=== PATIENT | male | born 1955 | race Caucasian/White ===

== ENCOUNTER 2019-06-05 11:45 | Inpatient (IN) | payer OTHER ==
[2019-06-05] MEDS ORDERED: VANCOMYCIN 2,000 MG in SODIUM CHLORIDE 0.9% 500 ML 500 ML IVPB STA (12:00)
[2019-06-05] MEDS ORDERED: PIPERACILLIN-TAZOBACTAM 3.375 GM in SODIUM CHLORIDE 0.9% 100 ML IVPB STA (12:00)
[2019-06-05] MEDS ORDERED: HYDROcodone/APAP 5-325MG 1 EACH TAB PO STA (12:01)
[2019-06-05] MEDS ORDERED: KETOROLAC 30 MG/ML 1 ML VIAL IVP STA (12:01)
[2019-06-05] MEDS ORDERED: SODIUM CHLORIDE 0.9% 1,000 ML IV ONE (12:01)
--- NOTE | 2019-06-05 12:10 | ED ---
General Adult HPI - General Chief complaint: Skin/Abscess/Foreign Body Stated complaint: Spider bite Time Seen by Provider: 06/05/19 11:53 Source: patient Mode of arrival: ambulatory Limitations: no limitations - History of Present Illness Initial comments: Patient is a 63-year-old male presents with chief complaint of right hand pain for 2 days. The patient says he stuck his hand in a newspaper recycling bin and thinks a bit by a spider. Since that time he has had increased swelling of the hand, mainly at the middle finger on the palmar. He says his pain is 9 out of 10 but somewhat alleviated with Advil. The patient denied any fever, chills, n ausea or vomiting, chest pain or shortness of breath. He says he does not take any medications at home, does not have any previous medical history. - Related Data Home Medications Medication Instructions Recorded Confirmed Ibuprofen [Motrin] 800 mg PO Q6H PRN 06/05/19 06/05/19 Allergies Allergy/AdvReac Type Severity Reaction Status Date / Time No Known Allergies Allergy Verified 06/05/19 12:22 Review of Systems ROS Statement: Those systems with pertinent positive or pertinent negative responses have been documented in the HPI. ROS Other: All systems not noted in ROS Statement are negative. Musculoskeletal: Reports: joint swelling, arthralgia Past Medical History Past Medical History: No Reported History History of Any Multi-Drug Resistant Organisms: None Reported Past Surgical History: No Surgical Hx Reported Past Psychological History: No Psychological Hx Reported Smoking Status: Current every day smoker Past Alcohol Use History: None Reported Past Drug Use History: None Reported General Exam Limitations: no limitations General appearance: alert, in no apparent distress, anxious Head exam: Present: atraumatic, normocephalic Eye exam: Present: normal appearance ENT exam: Present: normal exam Neck exam: Present: normal inspection Respiratory exam: Present: normal lung sounds bilaterally. Absent: respiratory distress, wheezes Cardiovascular Exam: Present: regular rate, normal rhythm GI/Abdominal exam: Present: soft. Absent: distended, tenderness Rectal exam: Present: deferred Extremities exam: Present: joint swelling, other (patient has signs of cellulitis and abscess of the right hand. digits 2, 3, and 4 are red and swoll en, tender to palpation. there is a puncture wound on the middle finger. ) Back exam: Present: normal inspection Neurological exam: Present: alert, oriented X3 Psychiatric exam: Present: normal affect, normal mood Skin exam: Present: warm, dry, intact, other (as above ) Course Vital Signs 06/05/19 06/05/19 11:47 13:46 Temperature 97.5 F L Pulse Rate 95 98 Respiratory 28 H 18 Rate Blood Pressure 158/114 156/100 O2 Sat by Pulse 98 98 Oximetry Medical Decision Making - Medical Decision Making Patient presents with chief complaint hand pain and swelling. On initial evaluation, vitals are stable, patient is in no acute distress though he does appear anxious. Physical exam of the hand is concerning for cellulitis versus abscess. Patient started on vancomycin and Zosyn, blood work including lactic acid and blood cultures were drawn. Patient will be sent for computed tomography scan of the hand. Case discussed with orthopedics who agreed with current management, antibiotics, and admission. They're recommending a K pad to be placed on the hand. 1:53 PM Lab evaluation of this patient shows a leukocytosis of 13.3 with a left shift. Labs are otherwise showing a C-reactive protein of 72.6. Computed tomography scan of the hand does not show any drainable fluid collection. At this time, patient will be admitted for IV antibiotics. He is agreeable with the care plan. Patient admitted to Dr. Rodríguez with infectious disease on consult. - Lab Data Result diagrams: 06/05/19 12:15 06/05/19 12:15 Lab Results 06/05/19 06/05/19 06/05/19 Range/Units 12:15 12:15 12:15 WBC 13.3 H (3.8-10.6) k/uL RBC 5.96 H (4.30-5.90) m/uL Hgb 16.6 (13.0-17.5) gm/dL Hct 50.1 (39.0-53.0) % MCV 84.1 (80.0-100.0) fL MCH 27.9 (25.0-35.0) pg MCHC 33.1 (31.0-37.0) g/dL RDW 13.5 (11.5-15.5) % Plt Count 271 (150-450) k/uL Neutrophils % 76 % Lymphocytes % 15 % Monocytes % 6 % Eosinophils % 1 % Basophils % 0 % Neutrophils # 10.2 H (1.3-7.7) k/uL Lymphocytes # 2.0 (1.0-4.8) k/uL Monocytes # 0.8 (0-1.0) k/uL Eosinophils # 0.2 (0-0.7) k/uL Basophils # 0.0 (0-0.2) k/uL ESR 8 (0-15) mm/hr Sodium 141 (137-145) mmol/L Potassium 4.1 (3.5-5.1) mmol/L Chloride 111 H (98-107) mmol/L Carbon Dioxide 18 L (22-30) mmol/L Anion Gap 12 mmol/L BUN 16 (9-20) mg/dL Creatinine 0.99 (0.66-1.25) mg/dL Est GFR (CKD-EPI)AfAm >90 (>60 ml/min/1.73 sqM) Est GFR (CKD-EPI)NonAf 80 (>60 ml/min/1.73 sqM) Glucose 122 H (74-99) mg/dL Plasma Lactic Acid Pavel 1.9 (0.7-2.0) mmol/L Calcium 10.2 (8.4-10.2) mg/dL C-Reactive Protein 72.6 H (<10.0) mg/L Disposition Clinical Impression: Cellulitis of right hand Disposition: ADMITTED IP TO THIS HOSP Condition: Good Is patient prescribed a controlled substance at d/c from ED?: No Decision to Admit Reason: Admit from EC - Out of Hospital Transfer - Req. Specs Out of Hospital Transfer - Requested Specifics: Other Non-Acute
[2019-06-05 12:28] LABS: Basophils % (A) 0 %; Eosinophils # (A) 0.2 k/uL (0-0.7); Eosinophils % (A) 1 %; HCT 50.1 % (39.0-53.0); HGB 16.6 gm/dL (13.0-17.5); Lymphocytes % (A) 15 %; MCH 27.9 pg (25.0-35.0); MCHC 33.1 g/dL (31.0-37.0); MCV 84.1 fL (80.0-100.0); Mean Platelet Volume 6.5; Monocytes # (A) 0.8 k/uL (0-1.0); Monocytes % (A) 6 %; Neutrophils # (A) 10.2 k/uL (1.3-7.7); Neutrophils % (A) 76 %; Platelet Count 271 k/uL (150-450); RBC 5.96 m/uL (4.30-5.90); RDW 13.5 % (11.5-15.5); WBC 13.3 k/uL (3.8-10.6)
[2019-06-05 12:43] LABS: African American GFR (CKD) >90 (>60 ml/min/1.73 sqM); Anion Gap 12 mmol/L; Blood Urea Nitrogen 16 mg/dL (9-20); C Reactive Protein 72.6 mg/L (<10.0); Calcium 10.2 mg/dL (8.4-10.2); Carbon Dioxide 18 mmol/L (22-30); Chloride 111 mmol/L (98-107); Glucose 122 mg/dL (74-99); Potassium 4.1 mmol/L (3.5-5.1); Sodium 141 mmol/L (137-145)
[2019-06-05] MEDS ORDERED: NALOXONE 0.4 MG/ML 1 ML VIAL IV PRN (13:00)
[2019-06-05 13:14] LABS: Erythrocyte Sedimentation Rate 8 mm/hr (0-15)
--- NOTE | 2019-06-05 13:49 | CT ---
EXAMINATION TYPE: CT hand RT w con DATE OF EXAM: 06/05/2019 COMPARISON: None. HISTORY: Red swollen hand CT DLP: 202 mGycm Automated exposure control for dose reduction was used. CONTRAST: Performed with IV Contrast, patient injected with 100 mL of Isovue 300. FINDINGS: The fingers are flexed in all projections. Soft tissues appear unremarkable. No abnormal fluid collections are seen. No osseous destructive lesi on is seen. IMPRESSION: 1. NO ACUTE OSSEOUS LESION. 2. NO DRAINABLE FLUID COLLECTION.
[2019-06-05] MEDS ORDERED: VANCOMYCIN IV PER PHARMACY 1 EACH MISC MISCELLANE PRN (14:36)
[2019-06-05] MEDS: LACTATED RINGERS 1,000 ML IV SCH (17:16)
[2019-06-05] MEDS: HYDROcodone/APAP 5-325MG 1 EACH TAB PO PRN (20:58)
--- NOTE | 2019-06-05 23:48 | P.CONS ---
History of Present Illness - Reason for Consult Consult date: 06/05/19 Tenosynovitis right hand Requesting physician: Oliver Rodríguez - Chief Complaint Right hand pain swelling few days - History of Present Illness Patient is a 63-year-old male presenting to the ER at [facility] chief complaints of right hip pain swelling and redness the patient has been going on for a few days patient mentioned that he put his and in a newspaper recycling bin and subsequently noticed to have pain on the dorsum aspect of his right hand the subsequently has increased in intensity over the next few days that prompted him to come to the ER and decided to be throbbing 5- 6 out of 10 and worse with touching his hand especially dorsal aspect of the middle finger with associated swelling and redness currently with open wound or any drainage and denies having any fever or chills the symptom the patient was evaluated by the ER physician patient did not have any fever on presentation to the hospital he did have CT of the right hand which did not show any drainable abscess patient will be started on vancomycin and Zosyn and infectious disease was consulted for further recommendation regarding antibiotic therapy Review of Systems CONSTITUTIONAL: Positive for weakness. Denies high-grade Fever EYES: No complaint. ENT:No complaint. RESPIRATORY: No complaint. CARDIOVASCULAR: No complaint. GENITOURINARY: No complaint. GASTROINTESTINAL: No complaint. MUSCULOSKELETAL: As per history of present illness. INTEGUMENTARY: As per history of present illness. PSYCHOLOGICAL: No complaint. ENDOCRINE: No complaint. NEUROLOGIC: No complaint. Past Medical History Past Medical History: No Reported History Additional Past Medical History / Comment(s): Ulcer in 1979 History of Any Multi-Drug Resistant Organisms: None Reported Past Surgical History: No Surgical Hx Reported Past Psychological History: No Psychological Hx Reported Smoking Status: Current every day smoker Past Alcohol Use History: None Reported Past Drug Use History: None Reported - Past Family History Father Family Medical History: Hypertension Medications and Allergies Home Medications Medication Instructions Recorded Confirmed Type Ibuprofen [Motrin] 800 mg PO Q6H PRN 06/05/19 06/05/19 History Allergies Allergy/AdvReac Type Severity Reaction Status Date / Time No Known Allergies Allergy Verified 06/05/19 12:22 Physical Exam Vitals: Vital Signs Temp Pulse Pulse Resp BP BP Pulse Ox 06/05/19 15:20 98.7 F 64 16 167/87 98 06/05/19 15:00 99.4 F 93 15 168/104 93 L 06/05/19 14:30 98.9 F 71 18 165/98 96 06/05/19 13:46 98 18 156/100 98 06/05/19 11:47 97.5 F L 95 28 H 158/114 98 Intake and Output 06/05/19 06/05/19 06/05/19 06:59 14:59 22:59 Other: Weight 88.451 kg GENERAL DESCRIPTION: Middle-aged male lying in bed, no distress. No tachypnea or accessory muscle of respiration use. HEENT: Shows Pallor , no scleral icterus. Oral mucous membrane is dry. No pharyngeal erythema or thrush NECK: Trachea central, no thyromegaly. LUNGS: Unlabored breathing. Clear to auscultation anteriorly. No wheeze or crackle. HEART: S1, S2, regular rate and rhythm. No loud murmur ABDOMEN: Soft, no tenderness , guarding or rigidity, no organomegaly EXTREMITIES: Right hand dorsum did have some swelling and minimal tenderness mostly marked at the dorsal aspect of the right middle finger currently with no open wound or any drainage. SKIN: No rash, no masses palpable. NEUROLOGICAL: The patient is awake, alert, oriented x3, mood and affect normal. Results CBC & Chem 7: 06/05/19 12:15 06/05/19 12:15 Labs: Abnormal Lab Results - Last 24 Hours (Table) 06/05/19 06/05/19 Range/Units 12:15 12:15 WBC 13.3 H (3.8-10.6) k/uL RBC 5.96 H (4.30-5.90) m/uL Neutrophils # 10.2 H (1.3-7.7) k/uL Chloride 111 H (98-107) mmol/L Carbon Dioxide 18 L (22-30) mmol/L Glucose 122 H (74-99) mg/dL C-Reactive Protein 72.6 H (<10.0) mg/L Assessment and Plan Assessment: 1-patient presented to hospital with a right hand pain swelling and redness is currently most marked on dorsum aspect of the right index finger especially at the [place] interphalangeal joint with a question of possible gouty or other inflammatory arthritis underlying infectious tenosynovitis not entirely excluded likely from gram-positive skin for clinical suspicion for gram-negative infection Plan: 1--vancomycin pharmacy to dose target trough of 15 while watching her kidney function and Vanco trough closely 2-discontinue Zosyn to decrease risk of nephrotoxicity with concomitant vancomycin use 3-add cefazolin 2 g every 12hr to cover for gram-negative we will follow on clinical condition and culture to further adjust medication if needed Thank you for this consultation will follow this patient along with you Time with Patient: Greater than 30
[2019-06-06] MEDS ORDERED: PIPERACILLIN-TAZOBACTAM 3.375 GM in SODIUM CHLORIDE 0.9% 100 ML IVPB SCH ×2
[2019-06-06] MEDS: VANCOMYCIN 1,750 MG in SODIUM CHLORIDE 0.9% 500 ML 500 ML IVPB SCH ×2 (00:01→15:15)
[2019-06-06] MEDS: LACTATED RINGERS 1,000 ML IV SCH ×2 (00:08→18:15)
[2019-06-06] MEDS: HYDROcodone/APAP 5-325MG 1 EACH TAB PO PRN ×3 (01:03→22:40)
[2019-06-06 08:44] LABS: Glucose,Whole Blood 100 mg/dL (75-99)
[2019-06-06 08:47] LABS: ALT 20 U/L (21-72); AST 18 U/L (17-59); African American GFR (CKD) >90 (>60 ml/min/1.73 sqM); Albumin 3.5 g/dL (3.5-5.0); Alkaline Phosphatase 82 U/L (38-126); Anion Gap 9 mmol/L; Blood Urea Nitrogen 9 mg/dL (9-20); Calcium 8.4 mg/dL (8.4-10.2); Carbon Dioxide 18 mmol/L (22-30); Chloride 110 mmol/L (98-107); Glucose 93 mg/dL (74-99); Potassium 4.3 mmol/L (3.5-5.1); Sodium 137 mmol/L (137-145); Total Bilirubin 0.8 mg/dL (0.2-1.3)
[2019-06-06] MEDS: CEFEPIME 2 GM in SODIUM CHLORIDE 0.9% 100 ML IVPB SCH ×2 (10:18→20:38)
--- NOTE | 2019-06-06 11:48 | P.HPOR ---
History of Present Illness H&P Date: 06/06/19 Chief Complaint: Right middle finger pain and swelling The patient is a 63-year-old male who presented to the emergency department with right hand pain and swelling. The patient states that he was reaching into a recycle bin and felt a sharp pain in his right middle finger on Thursday morning. By Thursday evening he had increased pain and swelling in his right middle finger. On Thursday he noticed stiffness in the finger and also tingling. The swelling and and redness continued to worsen and he presented to the emergency department on Thursday. He denies fever, chills, and rigors. This morning, the patient is feeling his blood sugar dropping and needs to eat. He has been nothing by mouth since midnight. CT of the right hand was obtained in the emergency department and did not find any fluid collections. The patient was admitted for further evaluation and antibiotic therapy. The patient has also been seen by Dr. Dasilva by infectious disease and he is currently on cefepime and vancomycin. He is a every day smoker. Review of Systems Constitutional: Denies chills, Denies fatigue, Denies fever Cardiovascular: Denies chest pain, Denies shortness of breath Respiratory: Denies cough Gastrointestinal: Denies abdominal pain, Denies diarrhea, Denies nausea, Denies vomiting Musculoskeletal: right: hand pain, hand stiffness, hand swelling Past Medical History Past Medical History: No Reported History Additional Past Medical History / Comment(s): Ulcer in 1979 History of Any Multi-Drug Resistant Organisms: None Reported Past Surgical History: No Surgical Hx Reported Past Psychological History: No Psychological Hx Reported Smoking Status: Current every day smoker Past Alcohol Use History: None Reported Past Drug Use History: None Reported - Past Family History Father Family Medical History: Hypertension Medications and Allergies Home Medications Medication Instructions Recorded Confirmed Type Ibuprofen [Motrin] 800 mg PO Q6H PRN 06/05/19 06/05/19 History Allergies Allergy/AdvReac Type Severity Reaction Status Date / Time No Known Allergies Allergy Verified 06/05/19 12:22 Physical Examination The patient is a 63-year-old male who is in no acute distress. He is alert and oriented 3. The patient is visibly tremoring due to low blood sugar according to the patient. Exam of the right hand reveals diffuse swelling to all of the fingers especially the right middle finger. There is also swelling to the dorsal hand that stops at the wrist. There is no proximal red streaking present there is erythema to the right middle finger that extends to the mid dorsal hand. No open wounds are present. No obvious fluid collection or abscess is seen. He is able to flex his PIP joint of the right middle finger to 80 and c an slightly extend the finger. Motion is limited due to swelling and pain. He has near full motion of his thumb, index, ring, and little fingers but is limited due to swelling. Right middle finger and dorsal hand. Neurological and circulatory status is intact. Results CT of the right hand reveals no fluid collection or abscesses. - Labs Labs: Abnormal Lab Results - Last 24 Hours (Table) 06/05/19 06/05/19 06/06/19 Range/Units 12:15 12:15 07: WBC 13.3 H (3.8-10.6) k/uL RBC 5.96 H (4.30-5.90) m/uL Neutrophils # 10.2 H (1.3-7.7) k/uL Chloride 111 H 110 H (98-107) mmol/L Carbon Dioxide 18 L 18 L (22-30) mmol/L Glucose 122 H (74-99) mg/dL POC Glucose (mg/dL) (75-99) mg/dL ALT 20 L (21-72) U/L C-Reactive Protein 72.6 H (<10.0) mg/L Total Protein 6.0 L (6.3-8.2) g/dL 06/06/19 Range/Units 08:42 WBC (3.8-10.6) k/uL RBC (4.30-5.90) m/uL Neutrophils # (1.3-7.7) k/uL Chloride (98-107) mmol/L Carbon Dioxide (22-30) mmol/L Glucose (74-99) mg/dL POC Glucose (mg/dL) 100 H (75-99) mg/dL ALT (21-72) U/L C-Reactive Protein (<10.0) mg/L Total Protein (6.3-8.2) g/dL H & H 06/05/19 Range/Units 12:15 Hgb 16.6 (13.0-17.5) gm/dL Hct 50.1 (39.0-53.0) % Result Diagrams: 06/05/19 12:15 06/06/19 07:22 Assessment and Plan (1) Cellulitis of right hand Current Visit: Yes Status: Acute Code(s): L03.113 - CELLULITIS OF RIGHT UPPER LIMB SNOMED Code(s): 55340970 Plan: The clinical and CT findings were discussed with the patient. We will continue to follow patient closely with infectious disease. No surgical intervention is warranted at this time. If the patient fails to improve, an I&D of the right middle finger and hand may be needed. Continue IV antibiotics in the form of cefepime and vancomycin per infectious disease. Continue K pad and elevation to the right hand. Continue gentle range of motion of the hand as tolerated.
--- NOTE | 2019-06-06 16:16 | PN ---
PROGRESS NOTE DATE OF SERVICE: 06/06/2019. REASON FOR FOLLOWUP: Right middle finger tenosynovitis and cellulitis. INTERVAL HISTORY: The patient is currently afebrile. The patient is complaining of throbbing pain especially to the right middle finger. Patient denies any chest pain. No shortness of breath or cough. No abdominal pain. No diarrhea. PHYSICAL EXAMINATION: Blood pressure 162/91, with pulse of 75 temperature 98.4. He is 96% on room air. General description is an elderly male up in the bed in no distress. Respiratory system: Unlabored breathing. Clear to auscultation anteriorly. Heart S1, S2. Regular rate and rhythm. Abdomen soft, no tenderness. Right hand dorsum did have some swelling, minimal redness. A small marked swelling of the right middle finger, joint. DIAGNOSTIC IMPRESSION AND PLAN: Patient with right middle finger cellulitis/tenosynovitis. The patient continued to have significant pain, slight more swelling and redness has been middle finger. Will monitor closely. Patient to continue with IV cefazolin, vancomycin to evaluate for tomorrow. Continue supportive care. MMODL / IJN: [id number] /
[2019-06-06] MEDS: LISINOPRIL 10 MG TAB PO SCH (20:59)
[2019-06-07] MEDS: VANCOMYCIN 1,750 MG in SODIUM CHLORIDE 0.9% 500 ML 500 ML IVPB SCH ×2 (00:42→16:03)
[2019-06-07] MEDS: HYDROcodone/APAP 5-325MG 1 EACH TAB PO PRN (03:43)
[2019-06-07 08:02] LABS: African American GFR (CKD) >90 (>60 ml/min/1.73 sqM); Anion Gap 9 mmol/L; Blood Urea Nitrogen 9 mg/dL (9-20); Calcium 8.7 mg/dL (8.4-10.2); Carbon Dioxide 19 mmol/L (22-30); Chloride 109 mmol/L (98-107); Glucose 97 mg/dL (74-99); Sodium 137 mmol/L (137-145)
[2019-06-07 08:23] LABS: HGB 14.1 gm/dL (13.0-17.5); MCH 28.6 pg (25.0-35.0); MCHC 32.7 g/dL (31.0-37.0); MCV 87.5 fL (80.0-100.0); Platelet Count 234 k/uL (150-450); RBC 4.92 m/uL (4.30-5.90); RDW 13.7 % (11.5-15.5); WBC 13.3 k/uL (3.8-10.6)
[2019-06-07] MEDS: LISINOPRIL 10 MG TAB PO SCH (08:52)
[2019-06-07] MEDS: CEFEPIME 2 GM in SODIUM CHLORIDE 0.9% 100 ML IVPB SCH ×2 (08:52→20:34)
--- NOTE | 2019-06-07 09:22 | P.PN ---
Subjective Progress Note Date: 06/07/19 Principal diagnosis: Right hand cellulitis/right middle finger tenosynovitis. The patient is a 63-year-old male who presented to the emergency department with right hand pain and swelling. The patient states that he was reaching into a recycle bin and felt a sharp pain in his right middle finger on Thursday morning. By Thursday evening he had increased pain and swelling in his right middle finger. On Thursday he noticed stiffness in the finger and also tingling. The swelling and and redness continued to worsen and he presented to the emergency department on Thursday. He denies fever, chills, and rigors. This morning, the patient is feeling his blood sugar dropping and needs to eat. He has been nothing by mouth since midnight. CT of the right hand was obtained in the emergency department and did not find any fluid collections. The patient was admitted for further evaluation and antibiotic therapy. The patient has also been seen by Dr. Dasilva by infectious disease and he is currently on cefepime and vancomycin. He is a every day smoker. 06/07/2019: The patient states his hand swelling and redness has improved. Pain still remains in the right middle finger but the motion has improved slightly. He denies fever, chills, rigors, chest pain, shortness of breath, and abdominal pain today. No new complaints. Objective - Vital Signs Vital signs: Vital Signs Temp 98 F 06/07/19 07:00 Pulse 62 06/07/19 07:00 Resp 17 06/07/19 07:00 BP 160/93 06/07/19 07:00 Pulse Ox 96 06/07/19 07:00 Intake & Output 06/06/19 06/07/19 06/07/19 18:59 06:59 18:59 Intake Total 1022 1140 Balance 1022 1140 Intake: Intake, IV Titration 600 Amount Cefepime 2 gm In Sodium 100 Chloride 0.9% 100 ml @ 200 mls/hr IVPB Q12HR MELISSA Rx#:[id number] Vancomycin 1,750 mg In 500 Sodium Chloride 0.9% 500 ml 500 ml @ 167 mls/hr IVPB Q12H MELISSA Rx#: [id number] Oral 1022 540 Other: # Voids 1 - Exam The patient is a 63-year-old male who is in no acute distress. He is alert and oriented 3. Exam of the right hand reveals improved swelling to all of the f ingers especially the right middle finger. There is also improved swelling to the dorsal hand that stops at the wrist. There is no proximal red streaking present. The erythema to the right middle finger that extends to the mid dorsal hand has receded. No open wounds are present. No obvious fluid collection or abscess is seen. He is able to flex his PIP joint of the right middle finger to 80 and can slightly extend the finger. Motion is limited due to swelling and pain. He has near full motion of his thumb, index, ring, and little fingers but is limited due to swelling. Right middle finger and dorsal hand. Neurological and circulatory status is intact - Labs CBC & Chem 7: 06/07/19 07:20 06/07/19 07:20 Labs: Abnormal Lab Results - Last 24 Hours (Table) 06/07/19 06/07/19 Range/Units 07:20 07:20 WBC 13.3 H (3.8-10.6) k/uL Chloride 109 H (98-107) mmol/L Carbon Dioxide 19 L (22-30) mmol/L Assessment and Plan (1) Cellulitis of right hand Current Visit: Yes Status: Acute Code(s): L03.113 - CELLULITIS OF RIGHT UPPER LIMB SNOMED Code(s): 32599098 Plan: The clinical and CT findings were discussed with the patient. We will continue to follow patient closely with infectious disease. No surgical intervention is warranted at this time. If the patient fails to improve, an I&D of the right middle finger and hand may be needed. Continue IV antibiotics in the form of cefepime and vancomycin per infectious disease. Continue K pad and elevation to the right hand. Continue gentle range of motion of the hand as tolerated. We will continue to follow the patient's course closely.
[2019-06-07] MEDS ORDERED: NICOTINE POLACRILEX 2 MG GUM BUCCAL PRN (10:27)
--- NOTE | 2019-06-07 10:28 | P.CONS ---
History of Present Illness - Reason for Consult Consult date: 06/07/19 hypertension Requesting physician: Oliver Rodríguez - Chief Complaint right middle finger pain - History of Present Illness Patient is a 63-year-old male with a past medical history of bleeding gastric ulcer, sinusitis, and prior shingles who presented to the emergency department with complaints of right middle finger swelling, tenderness, and stiffness. In the ER he underwent a CT of the hand which did not show any definitive fluid collection. His initial vital signs on elevated blood pressure 158/114 and elevated respiratory rate of 28. Initial laboratory analysis showed slightly elevated at 13.3, chloride 111, carbon dioxide 18 and a glucose of 122. He was started on IV antibiotics and was admitted to orthopedic surgery. Infectious disease was consulted and antibiotics were escalated to Vanco and cefepime. Patient seen and examined at bedside. He reports that he has not seen a doctor since the . He reports that his blood pressures have been normal at his dentist office ranging upwards of 130s. He is feeling very anxious and frustrated at being in the hospital. He is typically a very routine person. He has not experienced any chest pain, shortness breath, lightheadedness, dizziness, or palpitations. Has not had a cholesterol level checked. [facility] has [facility] past for [facility]itis. He reports that he was taking the recycling out on Thursday and felt to participate in his finger, and then developed swelling and tenderness. By Thursday morning he had difficulty moving his finger. He went to urgent care initially and was told to come to the emergency department. He states that his finger is regaining some movement and that his pain is less. He is still having significant swelling and reduced mobility. He is anxious to be discharged from the hospital and has questions about why his finger is not being drained. Review of Systems Pertinent positives and negatives as discussed in HPI, a complete review of systems was performed and all other systems are negative. Past Medical History Past Medical History: No Reported History Additional Past Medical History / Comment(s): Gastric Ulcer in 1979, shingles, sinusitis History of Any Multi-Drug Resistant Organisms: None Reported Additional Past Surgical History / Comment(s): Multiple dental surgeries Past Psychological History: No Psychological Hx Reported Smoking Status: Current every day smoker Past Alcohol Use History: None Reported Past Drug Use History: None Reported Additional History: Smokes 6 cigarettes daily, lives with his brother, retired - Past Family History Father Family Medical History: Hypertension Medications and Allergies Home Medications Medication Instructions Recorded Confirmed Type Ibuprofen [Motrin] 800 mg PO Q6H PRN 06/05/19 06/05/19 History Allergies Allergy/AdvReac Type Severity Reaction Status Date / Time No Known Allergies Allergy Verified 06/05/19 12:22 Physical Exam Osteopathic Statement: *. No significant issues noted on an osteopathic structural exam other than those noted in the History and Physical/Consult. Vitals: Vital Signs Temp Pulse Pulse Resp BP Pulse Ox 06/07/19 07:00 98 F 62 17 160/93 96 06/07/19 01:09 99.0 F 70 18 121/70 95 06/06/19 19:44 98.2 F 71 18 179/90 96 06/06/19 15:00 98.5 F 75 16 148/93 97 Intake and Output 06/06/19 06/07/19 06/07/19 22:59 06:59 14:59 Intake Total 596 1140 236 Balance 596 1140 236 Intake: Intake, IV Titration 600 Amount Cefepime 2 gm In Sodium 100 Chloride 0.9% 100 ml @ 200 mls/hr IVPB Q12HR [facility] Rx#:[id number] Vancomycin 1,750 mg In 500 Sodium Chloride 0.9% 500 ml 500 ml @ 167 mls/hr IVPB Q12H [facility] Rx#: [id number] Oral 596 540 236 General: non toxic, no distress, appears at stated age, normal weight Derm: Right middle finger with warmth, erythema, and significant swelling, no un usual ecchymoses, warm, dry Head: atraumatic, normocephalic, symmetric Eyes: EOMI, no lid lag, anicteric sclera, pupils equal round reactive to light ENT: Nose and ears atraumatic, no thrush, no pharyngeal erythema Neck: No thyromegaly, no cervical lymphadenopathy, trachea midline, supple Mouth: no lip lesion, mucus membranes moist, agent not wearing partial for left upper Cardiovascular: S1S2 reg, no murmur, positive posterior tibial pulse bilateral, no edema, capillary refill less than 2 seconds Lungs: CTA bilateral, no rhonchi, no rales , no accessory muscle use Abdominal: soft, nontender to palpation, no guarding, no appreciable organomegaly, normal bowel sounds Ext: no gross muscle atrophy, no contractures, Neuro: CN II-XI grossly intact, light touch intact all 4 extremities Psych: Alert, oriented, appropriate affect Results CBC & Chem 7: 06/07/19 07:20 06/07/19 07:20 Labs: Abnormal Lab Results - Last 24 Hours (Table) 06/07/19 06/07/19 Range/Units 07:20 07:20 WBC 13.3 H (3.8-10.6) k/uL Chloride 109 H (98-107) mmol/L Carbon Dioxide 19 L (22-30) mmol/L Assessment and Plan Assessment: Right middle finger cellulitis, right hand cellulitis, with possible tenosynovitis likely infectious -Infectious disease following currently on vancomycin and cefepime -No plans for surgical intervention at this time, case discussed with worse so -Elevate hand, gentle range of motion -Follow CBC and fever trends Elevated blood pressures without diagnosis of hypertension -Appears related to anxiety during hospital stay -Has had blood pressures close to 180 and low-dose lisinopril initiated -We'll need PCP on discharge and [facility] -Likely can be discharged off of blood pressure medications as patient reports typical blood pressure of 130s to 140s -Check cholesterol profile Situational anxiety -Patient does not feel he needs treatment at this point in time -Supportive care Tobacco abuse -Nicotine replacement -Cessation Hyperchloremic metabolic acidosis -Undetermined cause -Blood work in a.m. DVT prophylaxis:early ambulation Discussed with: patient, nursing, ortho Anticipated discharge: 2-[address]: home A total of 45 minutes was spent on the care of this complex patient more than 50% of the time was spent in counseling and care coordination.
[2019-06-07] MEDS ORDERED: VANCOMYCIN TROUGH DUE 1 EACH MISC MISCELLANE ONE (12:00)
[2019-06-07] MEDS ORDERED: POLYETHYLENE GLYCOL 3350 17 GM POWD.PACK PO PRN (16:31)
--- NOTE | 2019-06-07 21:05 | PN ---
PROGRESS NOTE DATE OF SERVICE: 06/07/2019. REASON FOR FOLLOWUP: Right middle finger tenosynovitis and cellulitis. INTERVAL HISTORY: The patient is currently afebrile. The patient has been breathing comfortably. Denies having any chest pain or any cough. No abdominal pain. No diarrhea and denies any worsening pain to the right middle finger, it is mostly swollen. No open wound or any drainage. PHYSICAL EXAMINATION: Blood pressure 150/65 with a pulse of 73, temperature 98. He is 94% on room air. General description is an elderly male lying in bed in no distress. Respiratory system: Unlabored breathing. Clear to auscultation anteriorly. Heart S1, S2. Regular rate and rhythm. Abdomen soft, no tenderness. Right hand dorsum did have some swelling mostly marked at the middle finger with no open wound or any drainage. LABS: Hemoglobin is 14.8, white count 13.3, BUN of 9, creatinine 2.85. Blood culture negative so far. DIAGNOSTIC IMPRESSION AND PLAN: Patient with right hand cellulitis and concern for tenosynovitis, especially the right middle finger, phalangeal joint. Ortho is on the case. Will monitor the clinical course closely for improvement. May benefit from I & D that should help relieve the pressure as well as a catheter specimen for the cultures. Continue cefepime and vancomycin at this time while monitoring clinical course closely. Continue supportive care. MMODL / IJN: [id number] /
[2019-06-08] MEDS: VANCOMYCIN 1,750 MG in SODIUM CHLORIDE 0.9% 500 ML 500 ML IVPB SCH ×3 (00:51→14:51)
[2019-06-08] MEDS: HYDROcodone/APAP 5-325MG 1 EACH TAB PO PRN (02:31)
[2019-06-08 08:39] LABS: HCT 42.5 % (39.0-53.0); HGB 14.1 gm/dL (13.0-17.5); MCHC 33.2 g/dL (31.0-37.0); MCV 87.4 fL (80.0-100.0); Mean Platelet Volume 7.2; Platelet Count 210 k/uL (150-450); RBC 4.86 m/uL (4.30-5.90); RDW 14.4 % (11.5-15.5); WBC 12.4 k/uL (3.8-10.6)
[2019-06-08 08:52] LABS: African American GFR (CKD) >90 (>60 ml/min/1.73 sqM); Anion Gap 10 mmol/L; Blood Urea Nitrogen 11 mg/dL (9-20); Calcium 8.7 mg/dL (8.4-10.2); Carbon Dioxide 19 mmol/L (22-30); Chloride 109 mmol/L (98-107); Cholesterol 124 mg/dL (<200); Glucose 93 mg/dL (74-99); HDL Cholesterol 38 mg/dL (40-60); LDL Cholesterol,Calculated 70 mg/dL (0-99); Sodium 138 mmol/L (137-145); Triglycerides 79 mg/dL (<150)
--- NOTE | 2019-06-08 08:56 | P.PN ---
Subjective Progress Note Date: 06/08/19 Principal diagnosis: Right hand cellulitis/right middle finger tenosynovitis. The patient is a 63-year-old male who presented to the emergency department with right hand pain and swelling. The patient states that he was reaching into a recycle bin and felt a sharp pain in his right middle finger on Thursday morning. By Thursday evening he had increased pain and swelling in his right middle finger. On Thursday he noticed stiffness in the finger and also tingling. The swelling and and redness continued to worsen and he presented to the emergency department on Thursday. He denies fever, chills, and rigors. This morning, the patient is feeling his blood sugar dropping and needs to eat. He has been nothing by mouth since midnight. CT of the right hand was obtained in the emergency department and did not find any fluid collections. The patient was admitted for further evaluation and antibiotic therapy. The patient has also been seen by Dr. Dasilva by infectious disease and he is currently on cefepime and vancomycin. He is a every day smoker. 06/07/2019: The patient states his hand swelling and redness has improved. Pain still remains in the right middle finger but the motion has improved slightly. He denies fever, chills, rigors, chest pain, shortness of breath, and abdominal pain today. No new complaints. 06/08/2019: He states the swelling and redness continues to improve. The motion to the finger is has not improved much. He denies fever, chills, rigors, chest pain, shortness of breath, and abdominal pain today. No new complaints. His WBC has improved slightly from 13.3 to 12.4. Objective - Vital Signs Vital signs: Vital Signs Temp 98.6 F 06/08/19 07:00 Pulse 62 06/08/19 07:00 Resp 16 06/08/19 07:00 BP 145/91 06/08/19 07:00 Pulse Ox 96 06/08/19 07:00 Intake & Output 06/07/19 06/08/19 06/08/19 18:59 06:59 18:59 Intake Total 458 1600 Balance 458 1600 Intake: IV 1000 NS 1000 Intake, IV Titration 600 Amount Cefepime 2 gm In Sodium 100 Chloride 0.9% 100 ml @ 200 mls/hr IVPB Q12HR [facility] Rx#:[id number] Vancomycin 1,750 mg In 500 Sodium Chloride 0.9% 500 ml 500 ml @ 167 mls/hr IVPB Q12H [facility] Rx#: [id number] Oral 458 Other: # Voids 3 - Exam The patient is a 63-year-old male who is in no acute distress. He is alert and oriented 3. Exam of the right hand reveals improved swelling to all of the fingers especially the right middle finger. There is also improved swelling to the dorsal hand that stops at the wrist. There is no proximal red streaking present. The erythema to the right middle finger that extends to the mid dorsal hand has receded. No open wounds are present. No obvious fluid collection or abscess is seen. He is able to flex his PIP joint of the right middle finger to 80 and can only slightly extend the finger. Motion is limited due to swelling and pain. He has near full motion of his thumb, index, ring, and little fingers but is limited due to swelling. Right middle finger and dorsal hand. Neurological and circulatory status is intact. - Labs CBC & Chem 7: 06/08/19 07:20 06/08/19 07:20 Labs: Abnormal Lab Results - Last 24 Hours (Table) 06/08/19 Range/Units 07:20 WBC 12.4 H (3.8-10.6) k/uL Assessment and Plan (1) Cellulitis of right hand Current Visit: Yes Status: Acute Code(s): L03.113 - CELLULITIS OF RIGHT UPPER LIMB SNOMED Code(s): 48445827 Plan: The clinical and CT findings were discussed with the patient. We will continue to follow patient closely with infectious disease. An MRI of the right hand will be ordered today to assess for infection along the flexor tendon sheath. He will remain NPO with possible I&D this afternoon depending on MRI results. Continue IV antibiotics in the form of cefepime and vancomycin per infectious disease. Continue K pad and elevation to the right hand. Continue gentle range of motion of the hand as tolerated. We will continue to follow the patient's course closely.
[2019-06-08] MEDS: LISINOPRIL 10 MG TAB PO SCH (08:59)
[2019-06-08] MEDS: CEFEPIME 2 GM in SODIUM CHLORIDE 0.9% 100 ML IVPB SCH ×2 (09:00→21:01)
--- NOTE | 2019-06-08 11:36 | MR ---
MR right hand with and without contrast HISTORY: Infection, tenosynovitis, erythema and edema Multiplanar multisequence and postcontrast images obtained through the hand following 8.5 cc Gadavist IV Correlation CT scan 06/05/2019 The third flexor tendon shows abnormal internal signal on T2-weighted sequences, there is local edema coursing along the flexor tendon sheath fluid signal present. Some enhancement of the soft tissues i s noted following contrast administration. There is soft tissue swelling present. Bone marrow signal is maintained. Incidental note made of probable enchondroma within the second digit proximal phalanx. IMPRESSION: Findings compatible with infectious tenosynovitis of the flexor tendon third digit right hand
--- NOTE | 2019-06-08 13:01 | P.PN ---
Subjective Progress Note Date: 06/08/19 Principal diagnosis: hand pain Patient is a 63-year-old male with a past medical history of bleeding gastric ulcer, sinusitis, and prior shingles who presented to the emergency department with complaints of right middle finger swelling, tenderness, and stiffness. In the ER he underwent a CT of the hand which did not show any definitive fluid collection. His initial vital signs on elevated blood pressure 158/114 and elevated respiratory rate of 28. Initial laboratory analysis showed slightly elevated at 13.3, chloride 111, carbon dioxide 18 and a glucose of 122. He was started on IV antibiotics and was admitted to orthopedic surgery. Infectious disease was consulted and antibiotics were escalated to Vanco and cefepime. MRI done 06/08 showed infectious tenosynovitis and plan is for OR today. Patient seen and examined at bedside. Complains of right finger pain that is slightly better than yesterday, movement slightly better. Swelling clinically better. Feeling very hot and hungry as he has not been able to eat since 6 AM. Just wants was finger taking care of him to be discharged home. Objective - Vital Signs Vital signs: Vital Signs Temp 98.6 F 06/08/19 07:00 Pulse 62 06/08/19 07:00 Resp 16 06/08/19 07:00 BP 145/91 06/08/19 07:00 Pulse Ox 96 06/08/19 07:00 Intake & Output 06/07/19 06/08/19 06/08/19 18:59 06:59 18:59 Intake Total 458 1600 Balance 458 1600 Intake: IV 1000 NS 1000 Intake, IV Titration 600 Amount Cefepime 2 gm In Sodium 100 Chloride 0.9% 100 ml @ 200 mls/hr IVPB Q12HR [facility] Rx#:[id number] Vancomycin 1,750 mg In 500 Sodium Chloride 0.9% 500 ml 500 ml @ 167 mls/hr IVPB Q12H [facility] Rx#: [id number] Oral 458 Other: Voiding Method Toilet # Voids 3 - Exam General: non toxic, no distress, appears at stated age Derm: Significant swelling, warmth, and erythema of right third finger. warm, dry Head: atraumatic, normocephalic, symmetric Eyes: EOMI, no lid lag, anicteric sclera Mouth: no lip lesion, mucus membranes moist Cardiovascular: S1S2 reg, no murmur, positive posterior tibial pulse bilateral, Lungs: CTA bilateral, no rhonchi, no rales , no accessory muscle use Abdominal: soft, nontender to palpation, no guarding, no appreciable organomegaly Ext: right 3rd finger with swelling and erythema and limited range of motion, no gross muscle atrophy, no edema, no contractures Neuro: CN II-XI grossly intact, no focal neuro deficits Psych: Alert, oriented, appropriate affect - Labs CBC & Chem 7: 06/08/19 07:20 06/08/19 07:20 Labs: Abnormal Lab Results - Last 24 Hours (Table) 06/08/19 06/08/19 Range/Units 07:20 07:20 WBC 12.4 H (3.8-10.6) k/uL Chloride 109 H (98-107) mmol/L Carbon Dioxide 19 L (22-30) mmol/L HDL Cholesterol 38 L (40-60) mg/dL Assessment and Plan Assessment: Right middle finger infectious tenosynovitis with right hand cellulitis -Infectious disease following currently on vancomycin and cefepime -OR today -Elevate hand, gentle range of motion -Follow CBC and fever trends Elevated blood pressures without diagnosis of hypertension -Appears related to anxiety during hospital stay -Lisinopril held today secondary to nothing by mouth status. Continue to monitor blood pressures. -Needs PCP on discharge and [facility] -Likely can be discharged off of blood pressure medications as patient reports typical blood pressure of 130s to 140s -Cholesterol profile within normal Situational anxiety -Patient does not feel he needs treatment at this point in time -Supportive care Tobacco abuse -Nicotine replacement -Cessation Hyperchloremic metabolic acidosis -Undetermined cause -Blood work in a.m. DVT prophylaxis:early ambulation Discussed with: patient, nursing, ortho Anticipated discharge: 1-[address]: home A total of 35 minutes was spent on the care of this complex patient more than 50% of the time was spent in counseling and care coordination.
[2019-06-08] MEDS ORDERED: LACTATED RINGERS 1,000 ML IV ONE (13:26)
[2019-06-08] MEDS ORDERED: fentaNYL (PF) 50 MCG/ML 2 ML AMP ONE (14:47)
[2019-06-08] MEDS ORDERED: LIDOCAINE 1% INJ 10MG/ML (20 ML MDV) ONE (14:47)
[2019-06-08] MEDS ORDERED: MIDAZOLAM 2 MG/2 ML VIAL ONE (14:47)
[2019-06-08] MEDS ORDERED: PROPOFOL 10 MG/ML 20 ML VIAL IV ONE (14:47)
[2019-06-08] MEDS ORDERED: HYDROmorphone 1 MG/ML 1 ML SYRINGE IVP ONE ×4 (15:50→16:35)
--- NOTE | 2019-06-08 16:24 | P.OP ---
Date of Procedure: 06/08/19 Procedure(s) Performed: PREOPERATIVE DIAGNOSES: 1. Pyogenic flexor tenosynovitis right third finger POSTOPERATIVE DIAGNOSES: 1. Pyogenic flexor tenosynovitis right third finger PROCEDURES PERFORMED: 1. Right third finger flexor tendon sheath flow-through irrigation with cultures ANESTHESIA: Gen. CLIENT RELATIONS SPECIALIST: Ramila Randolph PA-C (assistance with exposure, hemostasis, retraction, fixation, closure, dressing, splint) COMPLICATIONS: None ESTIMATED BLOOD LOSS: Less than 20 mL. DISPOSITION: To post-anesthesia care unit INDICATIONS: Mr. Sutton is a 63-year-old male with a history of pyogenic flexor tenosynovitis involving the right third finger. He presents to the operating room for incision and drainage with flow-through irrigation. Consent has been obtained after discussion of the risks of incision and drainage of this abscess as being inclusive of, but not limited to: Bleeding, further infection, scarring, discomfort, blood vessel and/or nerve damage, stiffness, compartment syndrome, failure to relieve symptoms, persistence or recurrence and/or worsening of symptoms or problems, need for further surgery, blood clot, pulmonary embolism, , anesthesia risks, and other risks. PROCEDURE: After appropriate consent was obtained, the patient was taken to the operating room placed in the supine position. Anesthesia was initiated, and after confirmation of adequate anesthesia, the patient was carefully positioned. Care was taken to make sure that all pressure points were adequately padded. Prepping and draping were completed in the usual aseptic fashion using ChloraPrep. Timeout was called, confirming patient identity, side, and procedure. An Esmarch bandage was used to exsanguinate the limb from approximately the MP joints to the distal wrist. The Esmarch was left around the distal wrist to act as a tourniquet. Hand chandler was used for the case. The infected finger was incised distally directly over the DIP joint mid laterally and the soft tissues were spread down to the flexor tendon sheath just volar to the DIP joint. Incision was made within the lateral portion of the flexor tendon sheath for distal flow-through irrigation. There was some fluid that was released during this incision and therefore this fluid was cultured. This fluid did not have the consistency of gross pus but rather, clear fluid. Counter incision was created in standard fashion for a trigger finger release at the level of the A1 patel proximally. Incision was carried down through skin and just into subcutaneous tissues which were then bluntly dissected down to the tendon sheath. Retractors were placed on either side of the tendon sheath to expose the sheath and retract neurovascular structures. Longitudinal incision was created over the tendon sheath just proximal to the A1 patel. A small portion of the A1 patel was released proximally to enhance exposure. The same type of clear fluid was encountered during this dissection and therefore this fluid was also cultured. Subsequently, flow-through irrigation was performed using a 14-gauge Angiocath attached to a control syringe. The catheter was placed within the tendon sheath proximally and flow-through irrigation was performed using gentle pressure through the syringe and the fluid was noted to emerge easily through the distal incision. Approximately 250 mL of a mild concentration of saline with chlorhexidine was utilized. Final rinse was then performed using normal saline. Incisions were left open and a small wick of gauze was placed in each incision to allow any further drainage. Sterile dressing was then applied and Esmarch tourniquet was released. Pressure was held over the incisions for approximately 3 minutes for hemostasis. Patient tolerated the procedure well and taken to recovery room in stable condition. Sponge counts were correct.
[2019-06-08] MEDS ORDERED: fentaNYL (PF) 50 MCG/ML 2 ML AMP IVP ONE ×2 (17:04→17:35)
--- NOTE | 2019-06-08 17:13 | PN ---
PROGRESS NOTE DATE OF SERVICE: 06/08/2019 REASON FOR FOLLOWUP: Right middle finger tenosynovitis. INTERVAL HISTORY: The patient is currently afebrile. The patient has been scheduled for I&D of the right finger tenosynovitis and culture. Denies having any chest pain. No shortness of breath or cough. No abdominal pain or any diarrhea. PHYSICAL EXAMINATION: Blood pressure is 120/50 with a pulse of 55. Temperature 97.2. He is 97% on 6 L nasal cannula. General description is an elderly male lying in bed in no distress. Respiratory system: Unlabored breathing. Clear to auscultation anteriorly. Heart S1, S2. Regular rate and rhythm. Abdomen soft, no tenderness. Right middle finger still has some swelling, minimal redness, no drainage. LABS: Hemoglobin 14.1, white count 12.4. DIAGNOSTIC IMPRESSION AND PLAN: Patient with right middle finger tenosynovitis for surgical I and D and cultures. Currently on cefepime and Vanco. Discharge antibiotic will depend upon culture report. Continue supportive care. MMODL / IJN: [id number] /
[2019-06-08] MEDS: MORPHINE SULFATE 2 MG/ML SYRINGE IVP PRN ×2 (19:02→22:21)
[2019-06-09] MEDS: VANCOMYCIN 1,750 MG in SODIUM CHLORIDE 0.9% 500 ML 500 ML IVPB SCH ×2 (01:06→12:36)
[2019-06-09] MEDS: MORPHINE SULFATE 2 MG/ML SYRINGE IVP PRN (02:05)
[2019-06-09] MEDS ORDERED: MORPHINE SULFATE 4 MG/ML SYRINGE IVP PRN (07:25)
[2019-06-09] MEDS: LISINOPRIL 10 MG TAB PO SCH (08:50)
[2019-06-09] MEDS: CEFEPIME 2 GM in SODIUM CHLORIDE 0.9% 100 ML IVPB SCH ×2 (08:51→20:57)
[2019-06-09 09:00] LABS: African American GFR (CKD) >90 (>60 ml/min/1.73 sqM)
--- NOTE | 2019-06-09 09:06 | P.PN ---
Subjective Progress Note Date: 06/09/19 Principal diagnosis: Right hand cellulitis/right middle finger tenosynovitis. The patient is a 63-year-old male who presented to the emergency department with right hand pain and swelling. The patient states that he was reaching into a recycle bin and felt a sharp pain in his right middle finger on Thursday morning. By Thursday evening he had increased pain and swelling in his right middle finger. On Thursday he noticed stiffness in the finger and also tingling. The swelling and and redness continued to worsen and he presented to the emergency department on Thursday. He denies fever, chills, and rigors. This morning, the patient is feeling his blood sugar dropping and needs to eat. He has been nothing by mouth since midnight. CT of the right hand was obtained in the emergency department and did not find any fluid collections. The patient was admitted for further evaluation and antibiotic therapy. The patient has also been seen by Dr. Dasilva by infectious disease and he is currently on cefepime and vancomycin. He is a every day smoker. 06/07/2019: The patient states his hand swelling and redness has improved. Pain still remains in the right middle finger but the motion has improved slightly. He denies fever, chills, rigors, chest pain, shortness of breath, and abdominal pain today. No new complaints. 06/08/2019: He states the swelling and redness continues to improve. The motion to the finger is has not improved much. He denies fever, chills, rigors, chest pain, shortness of breath, and abdominal pain today. No new complaints. His WBC has improved slightly from 13.3 to 12.4. 06/09/2019: The patient is status post incision and drainage of the right middle finger. It is post op day 1. He states the pressure pain in the finger is better. The bandage was too tight last night and was loosened. Overall, he feels well today. Denies fever, chills, rigors, chest pain, and shortness of breath. Dr. Dasilva continues to follow the patient closely as well as internal medicine. Objective - Vital Signs Vital signs: Vital Signs Temp 99.3 F 06/09/19 07:00 Pulse 71 06/09/19 07:00 Resp 16 06/09/19 07:00 BP 172/89 06/09/19 07:00 Pulse Ox 95 06/09/19 07:00 Intake & Output 06/08/19 06/09/19 06/09/19 18:59 06:59 18:59 Intake Total 900 740 Output Total 3 Balance 897 740 Intake: IV 900 Intake, IV Titration 740 Amount Cefepime 2 gm In Sodium 200 Chloride 0.9% 100 ml @ 200 mls/hr IVPB Q12HR [facility] Rx#:[id number] Lactated Ringers 1,000 ml 40 @ 0 mls/hr IV .[facility] Rx#:[id number] Vancomycin 1,750 mg In 500 Sodium Chloride 0.9% 500 ml 500 ml @ 167 mls/hr IVPB Q12H [facility] Rx#: [id number] Output: Estimated Blood Loss 3 Other: Voiding Method Toilet - Exam The patient does not appear in acute distress. Alert and orientated x3. Dressing is clean dry and intact. He is able to wiggle his fingers in the dressing slightly. No numbness present. Sensation and circulatory status is intact. - Labs CBC & Chem 7: 06/08/19 07:20 06/09/19 07:30 Labs: Microbiology - Last 24 Hours (Table) 06/08/19 15:21 Gram Stain - Preliminary Finger - Right Third Wound Culture - Preliminary 06/08/19 15:21 Gram Stain - Preliminary Finger - Right Third Wound Culture - Preliminary 06/08/19 15:21 Anaerobic Culture - Preliminary Finger - Right Third 06/08/19 15:21 Anaerobic Culture - Preliminary Finger - Right Third Assessment and Plan (1) Cellulitis of right hand Current Visit: Yes Status: Acute Code(s): L03.113 - CELLULITIS OF RIGHT UPPER LIMB SNOMED Code(s): 64553842 Plan: The clinical, operative, and culture findings were discussed with the patient. Case was also discussed with Dr. Rodríguez. The dressing will remain in place until this afternoon. I will return to perform the first dressing change later this afternoon. Continue IV antibiotics per infectious disease and medical ma desmond with internal medicine. Further recommendations to follow.
--- NOTE | 2019-06-09 13:05 | P.PN ---
Progress Note - Text Progress Note Date: 06/09/19 1st post op dressing change: Operative dressing removed. Small incisions to the A-1 patel area of the right middle finger and the radial aspect of the distal phalanx level right middle finger. Incision site are clean. Incision site cleansed with normal saline. Adaptic, 4x4s, and gauze roll applied to the hand. Patient to start physical therapy or OT for active and passive ROM of the right middle finger and hand to prevent adhesions of the flexor tendons. Nursing staff will change dressing daily and as needed. Patient tolerated dressing change well.
--- NOTE | 2019-06-09 19:46 | P.PN ---
Subjective Progress Note Date: 06/09/19 Principal diagnosis: hand pain Patient is a 63-year-old male with a past medical history of bleeding gastric ulcer, sinusitis, and prior shingles who presented to the emergency department with complaints of right middle finger swelling, tenderness, and stiffness. In the ER he underwent a CT of the hand which did not show any definitive fluid collection. His initial vital signs on elevated blood pressure 158/114 and elevated respiratory rate of 28. Initial laboratory analysis showed slightly elevated at 13.3, chloride 111, carbon dioxide 18 and a glucose of 122. He was started on IV antibiotics and was admitted to orthopedic surgery. Infectious disease was consulted and antibiotics were escalated to Vanco and cefepime. MRI done 06/08 showed infectious tenosynovitis and he underwent right third finger flexor tendon sheath flow-through irrigation with cultures. Patient seen and examined at bedside. Pain is much better Surgery Yesterday. No Chest Discomfort, No Shortness of Breath, No Nausea, No Diarrhea. Objective - Vital Signs Vital signs: Vital Signs Temp 98.7 F 06/09/19 15:00 Pulse 81 06/09/19 15:00 Resp 12 06/09/19 15:00 BP 153/88 06/09/19 15:00 Pulse Ox 97 06/09/19 15:00 Intake & Output 06/09/19 06/09/19 06/10/19 06:59 18:59 06:59 Intake Total 740 222 Balance 740 222 Intake: Intake, IV Titration 740 Amount Cefepime 2 gm In Sodium 200 Chloride 0.9% 100 ml @ 200 mls/hr IVPB Q12HR [facility] Rx#:[id number] Lactated Ringers 1,000 ml 40 @ 0 mls/hr IV .[facility] Rx#:[id number] Vancomycin 1,750 mg In 500 Sodium Chloride 0.9% 500 ml 500 ml @ 167 mls/hr IVPB Q12H [facility] Rx#: [id number] Oral 222 Other: # Voids 3 - Exam General: non toxic, no distress, appears at stated age Derm: Dressing in place warm, dry Head: atraumatic, normocephalic, symmetric Eyes: EOMI, no lid lag, anicteric sclera Mouth: no lip lesion, mucus membranes moist Cardiovascular: S1S2 reg, no murmur, positive posterior tibial pulse bilateral, Lungs: CTA bilateral, no rhonchi, no rales , no accessory muscle use Abdominal: soft, nontender to palpation, no guarding, no appreciable organomegaly Psych: Alert, oriented, appropriate affect - Labs CBC & Chem 7: 06/08/19 07:20 06/09/19 07:30 Labs: Microbiology - Last 24 Hours (Table) 06/08/19 15:21 Gram Stain - Preliminary Finger - Right Third Wound Culture - Preliminary 06/08/19 15:21 Gram Stain - Preliminary Finger - Right Third Wound Culture - Preliminary 06/08/19 15:21 Anaerobic Culture - Preliminary Finger - Right Third 06/08/19 15:21 Anaerobic Culture - Preliminary Finger - Right Third Assessment and Plan Assessment: Right middle finger infectious tenosynovitis with right hand cellulitis -Infectious disease following currently on vancomycin and cefepime -OR today -Elevate hand, gentle range of motion -Follow CBC and fever trends Elevated blood pressures without diagnosis of hypertension -Appears related to anxiety during hospital stay -Lisinopril held today secondary to nothing by mouth status. Continue to monitor blood pressures. -Needs PCP on discharge and prefers [facility] -Likely can be discharged off of blood pressure medications as patient reports typical blood pressure of 130s to 140s -Cholesterol profile within normal Situational anxiety -Patient does not feel he needs treatment at this point in time -Supportive care Tobacco abuse -Nicotine replacement -Cessation Hyperchloremic metabolic acidosis -Undetermined cause -Blood work in a.m. DVT prophylaxis:early ambulation Discussed with: patient, nursing, ortho Anticipated discharge: 1-[address]: home A total of 35 minutes was spent on the care of this complex patient more than 50% of the time was spent in counseling and care coordination.
--- NOTE | 2019-06-09 21:56 | PN ---
PROGRESS NOTE DATE OF SERVICE: 06/09/2019. REASON FOR FOLLOWUP: Right middle finger tenosynovitis. INTERVAL HISTORY: The patient is currently afebrile. Patient has been breathing comfortably. Pain to the right index finger and dorsum of the hand has slightly decreased intensity after surgery. Denies having any chest pain. No shortness of breath. No cough. No abdominal pain. No diarrhea. PHYSICAL EXAMINATION: Blood pressure 153/88 with a pulse of 81, temperature 98.7. He is 97% on room air General description is an elderly male up in the bed in no distress. Respiratory system: Unlabored breathing. Clear to auscultation anteriorly. Heart S1, S2. Regular rate and rhythm. Abdomen soft, no tenderness. Right middle finger is currently dressed up. No obvious drainage on the dressing. LABS: Creatinine 0.82. Culture so far pending. DIAGNOSTIC IMPRESSION AND PLAN: Patient with right index finger tenosynovitis status post drainage. Culture is currently pending. Continue Cefepime and vancomycin. Discharge antibiotic will depend on the culture report. Continue supportive care. MMODL / IJN: [id number] /
[2019-06-09] MEDS: HYDROcodone/APAP 5-325MG 1 EACH TAB PO PRN (23:50)
[2019-06-10 00:54] VITALS: PULSE 66
[2019-06-10] MEDS: VANCOMYCIN 1,750 MG in SODIUM CHLORIDE 0.9% 500 ML 500 ML IVPB SCH (01:14)
[2019-06-10 07:28] LABS: HCT 43.5 % (39.0-53.0); HGB 14.1 gm/dL (13.0-17.5); MCH 27.8 pg (25.0-35.0); MCHC 32.4 g/dL (31.0-37.0); MCV 85.7 fL (80.0-100.0); Mean Platelet Volume 6.7; Platelet Count 256 k/uL (150-450); RBC 5.07 m/uL (4.30-5.90); RDW 13.3 % (11.5-15.5); WBC 11.1 k/uL (3.8-10.6)
[2019-06-10 07:43] LABS: African American GFR (CKD) >90 (>60 ml/min/1.73 sqM); Anion Gap 10 mmol/L; Blood Urea Nitrogen 15 mg/dL (9-20); Calcium 8.9 mg/dL (8.4-10.2); Carbon Dioxide 23 mmol/L (22-30); Chloride 105 mmol/L (98-107); Glucose 100 mg/dL (74-99); Sodium 138 mmol/L (137-145)
[2019-06-10] MEDS ORDERED: LISINOPRIL 20 MG TAB PO SCH (09:00)
[2019-06-10 09:19] VITALS: BP 132/79; RESP 14; TEMP 98.7
[2019-06-10] MEDS: CEFEPIME 2 GM in SODIUM CHLORIDE 0.9% 100 ML IVPB SCH (10:00)
[2019-06-10] MEDS ORDERED: VANCOMYCIN TROUGH DUE 1 EACH MISC MISCELLANE ONE (12:00)
--- NOTE | 2019-06-10 12:49 | P.PN ---
Subjective Progress Note Date: 06/10/19 This is a 63 year-old male who is status post Irrigation and debridement of the right middle finger.This is postoperative day #2. Patient states that his pain is much improved and he denies any new symptoms or complaints. Objective - Vital Signs Vital signs: Vital Signs Temp 98.7 F 06/10/19 07:00 Pulse 66 06/10/19 07:00 Resp 14 06/10/19 07:00 BP 132/79 06/10/19 07:00 Pulse Ox 96 06/10/19 07:00 Intake & Output 06/09/19 06/10/19 06/10/19 18:59 06:59 18:59 Intake Total 222 500 Balance 222 500 Intake: Intake, IV Titration 500 Amount Vancomycin 1,750 mg In 500 Sodium Chloride 0.9% 500 ml 500 ml @ 167 mls/hr IVPB Q12H [facility] Rx#: [id number] Oral 222 Other: Voiding Method Toilet # Voids 3 2 - Exam On exam dressing is clean, dry and intact. Sensation is intact. Right upper extremity is warm and well perfused. Neurovascular status and circulatory status are intact. - Labs CBC & Chem 7: 06/10/19 07:10 06/10/19 07:10 Labs: Abnormal Lab Results - Last 24 Hours (Table) 06/10/19 06/10/19 Range/Units 07:10 07:10 WBC 11.1 H (3.8-10.6) k/uL Glucose 100 H (74-99) mg/dL Microbiology - Last 24 Hours (Table) 06/08/19 15:21 Gram Stain - Final Finger - Right Third Wound Culture - Final 06/08/19 15:21 Gram Stain - Final Finger - Right Third Wound Culture - Final Assessment and Plan Assessment: Pyogenic flexor tenosynovitis right middle finger. (1) Flexor tenosynovitis of finger Current Visit: Yes Status: Acute Code(s): M65.9 - SYNOVITIS AND TENOSYNOVITIS, UNSPECIFIED SNOMED Code(s): 608093010 (2) Cellulitis of right hand Current Visit: Yes Status: Acute Code(s): L03.113 - CELLULITIS OF RIGHT UP PER LIMB SNOMED Code(s): 99581583 Plan: 1. Daily dressing changes with Adaptic, 4 x 4's and gauze roll. 2. Antibiotics per infectious disease. 3. Continue routine postoperative care and pain control. 4. Cultures are negtive. 5. Appreciate input from internal medicine and infectious disease. 6. Anticipate discharge home in the next 24-48 hours.
--- NOTE | 2019-06-10 13:38 | P.DS ---
Providers Date of admission: 06/07/19 08:18 Expected date of discharge: 06/10/19 Attending physician: Oliver Rodríguez Consults: 06/05/19 13:00 Consult Physician Stat Consulting Provider: Francisca Dasilva Consult Reason/Comments: flexor tenosynovitis Do you want consulting provider notified?: Yes 06/06/19 20:19 Consult Physician Stat Consulting Provider: Darren Casarez Consult Reason/Comments: Medical Management Do you want consulting provider notified?: Yes Primary care physician: Stated None - Discharge Diagnosis(es) (1) Flexor tenosynovitis of finger Current Visit: Yes Status: Acute (2) Cellulitis of right hand Current Visit: Yes Status: Acute Hospital Course: This is a 63-year-old male who is admitted for infection of the right middle finger. Patient presented to the emergency room and a CT was negative for any fluid collections. The patient's symptoms did not improve after IV antibiotics so an MRI was ordered. MRI showed evidence for infectious tenosynovitis of the flexor tendon third digit right hand. Irrigation and debridement of the right middle finger was discussed with the patient as an option for treatment as his symptoms were not improving. After discussion and consideration patient elects to proceed with irrigation and debridement right middle finger. The patient is seen preoperatively by Dr. Rodríguez and cleared for surgery. Patient is admitted to [facility] on 06/05/19 and irrigation and debridement of the right middle finger is performed on 06/08/2019. The procedures performed without complication or sequelae. The patient is doing well postoperatively. Labs and vital signs are stable on day of discharge. Patient's white blood cell count is trending down. Patient is afebrile. Cultures thus far are negative. Infectious disease has been following the patient and managing postoperative antibiotics. On day of discharge patient's hand incisions are healing well. There is minimal erythema. There is minimal drainage noted at this time. There is minimal soft tissue swelling to the right hand. Neurovascular status to the right upper extremity is intact. Patient is discharged home in good condition. Please see med rec for accurate list of home medications. Patient Condition at Discharge: Good Plan - Discharge Summary Discharge Rx Participant: Yes New Discharge Prescriptions: New Cephalexin [Keflex] 500 mg PO Q6HR #56 cap Lisinopril [Zestril] 20 mg PO DAILY #30 tab HYDROcodone/APAP 5-325MG [[place] 5-325] 1 tab PO Q6HR PRN #30 tab PRN Reason: Pain Sennosides [Senokot] 1 tab PO BID #60 tablet Continue Ibuprofen [Motrin] 800 mg PO Q6H PRN PRN Reason: Pain Discharge Medication List Ibuprofen [Motrin] 800 mg PO Q6H PRN 06/05/19 [History] Cephalexin [Keflex] 500 mg PO Q6HR #56 cap 06/10/19 [Rx] HYDROcodone/APAP 5-325MG [[place] 5-325] 1 tab PO Q6HR PRN #30 tab 06/10/19 [Rx] Lisinopril [Zestril] 20 mg PO DAILY #30 tab 06/10/19 [Rx] Sennosides [Senokot] 1 tab PO BID #60 tablet 06/10/19 [Rx] Follow up Appointment(s)/Referral(s): Nonstaff,Physician [REFERRING] - 1-2 days [facility] [NON-STAFF] - 1 Week Oliver Rodríguez MD [STAFF PHYSICIAN] - 1 Week Patient Instructions/Handouts: Cellulitis (ED) Activity/Diet/Wound Care/Special Instructions: Daily dressing changes. Keep incisions clean and dry. Rest and elevate the right hand for swelling. Please take medications as prescribed. Please follow up with [facility] in one week and call with any questions or concerns, . Discharge Disposition: HOME SELF-CARE
--- NOTE | 2019-06-10 13:40 | P.PN ---
Subjective Progress Note Date: 06/10/19 Principal diagnosis: hand pain Patient is a 63-year-old male with a past medical history of bleeding gastric ulcer, sinusitis, and prior shingles who presented to the emergency department with complaints of right middle finger swelling, tenderness, and stiffness. In the ER he underwent a CT of the hand which did not show any definitive fluid collection. His initial vital signs on elevated blood pressure 158/114 and elevated respiratory rate of 28. Initial laboratory analysis showed slightly elevated at 13.3, chloride 111, carbon dioxide 18 and a glucose of 122. He was started on IV antibiotics and was admitted to orthopedic surgery. Infectious disease was consulted and antibiotics were escalated to Vanco and cefepime. MRI done 06/08 showed infectious tenosynovitis and he underwent right third finger flexor tendon sheath flow-through irrigation with cultures. Cultures came back negative. Patient seen and examined at bedside. Pain well controlled, feeling better, no nausea, no vomiting, no diarrhea. Objective - Vital Signs Vital signs: Vital Signs Temp 98.7 F 06/10/19 07:00 Pulse 66 06/10/19 07:00 Resp 14 06/10/19 07:00 BP 132/79 06/10/19 07:00 Pulse Ox 96 06/10/19 07:00 Intake & Output 06/09/19 06/10/19 06/10/19 18:59 06:59 18:59 Intake Total 222 500 Balance 222 500 Intake: Intake, IV Titration 500 Amount Vancomycin 1,750 mg In 500 Sodium Chloride 0.9% 500 ml 500 ml @ 167 mls/hr IVPB Q12H [facility] Rx#: [id number] Oral 222 Other: Voiding Method Toilet # Voids 3 2 - Exam General: non toxic, no distress, appears at stated age Derm: incised area with out erythema no active drainage noted, erythema and swelling decreased, dry Head: atraumatic, normocephalic, symmetric Eyes: EOMI, no lid lag, anicteric sclera Mouth: no lip lesion, mucus membranes moist Cardiovascular: S1S2 reg, no murmur, positive posterior tibial pulse bilateral, Lungs: CTA bilateral, no rhonchi, no rales , no accessory muscle use Abdominal: soft, nontender to palpation, no guarding, no appreciable organomegaly Psych: Alert, oriented, appropriate affect - Labs CBC & Chem 7: 06/10/19 07:10 07/26/19 07:10 Labs: Abnormal Lab Results - Last 24 Hours (Table) 06/10/19 06/10/19 Range/Units 07:10 07:10 WBC 11.1 H (3.8-10.6) k/uL Glucose 100 H (74-99) mg/dL Microbiology - Last 24 Hours (Table) 06/08/19 15:21 Gram Stain - Final Finger - Right Third Wound Culture - Final 06/08/19 15:21 Gram Stain - Final Finger - Right Third Wound Culture - Final Assessment and Plan Assessment: Right middle finger infectious tenosynovitis with right hand cellulitis -D/W ID and patient will complete 14 days of Keflex 500mg 4 times daily - RX completed -ortho recs Elevated blood pressures without diagnosis of hypertension -Appears related to anxiety during hospital stay - Lisinopril had to be increased throughout hospital stay, will need on discharge- RX completed - will need PCP, has no insurance [facility] place [facility] -Cholesterol profile within normal Situational anxiety -Patient does not feel he needs treatment at this point in time -Supportive care Tobacco abuse -Nicotine replacement -Cessation Hyperchloremic metabolic acidosis, resolved Medically optimized for discharge DVT prophylaxis:early ambulation Discussed with: patient, nursing Anticipated discharge: to day Anticipated discharge place: home A total of 35 minutes was spent on the care of this complex patient more than 50% of the time was spent in counseling and care coordination.
--- NOTE | 2019-06-10 14:00 | PN ---
PROGRESS NOTE DATE OF SERVICE: 06/10/2019 REASON FOR FOLLOWUP: Right middle finger tenosynovitis. INTERVAL HISTORY: The patient is currently afebrile. Patient has been breathing comfortably. Denies having any chest pain or any cough. No abdominal pain. Overall, pain to the right middle finger and dorsum of the hand has improved. PHYSICAL EXAMINATION: Blood pressure 132/79 with pulse of 73, temperature 98.7, he is 96% on room air. General description is an elderly male, up in the room in no distress. RESPIRATORY SYSTEM: Unlabored breathing, clear to auscultation anteriorly. HEART: S1, S2. Regular rate and rhythm. ABDOMEN: Soft, no tenderness. Right hand overall cellulitis has improved, no drainage. LABS: Hemoglobin is 14.8, white count of 11.1, BUN of 15, creatinine 0.86. Culture has been negative so far. DIAGNOSTIC IMPRESSION AND PLAN: Patient with right index finger tenosynovitis, status post drainage, culture has been negative so far with no resistant involving the bone. Antibiotic was switched over to Keflex 500 mg b.i.d. for 2 weeks with close outpatient followup. Plan of care discussed with Internal Medicine physician upon discharge. Continue supportive care. MMODL / IJN: [id number] /
== END 2019-06-10 14:50 | disposition home or self-care (01) | DRG 513 ==
LOC: EC 11:45 → 4SSUR 13:39 → OBSVTOIN 06-07 08:18
PROVIDERS: ADMIT Orthopaedic Surgery; ATTEND Orthopaedic Surgery
PROC: 0LN70ZZ Release Right Hand Tendon, Open Approach (ICD-10-PCS; principal; 2019-06-07)
DX: M65.141 Other infective (teno)synovitis, right hand (principal); E87.2 Acidosis; L03.113 Cellulitis of right upper limb; L03.011 Cellulitis of right finger; F17.210 Nicotine dependence, cigarettes, uncomplicated; F41.8 Other specified anxiety disorders; I10 Essential (primary) hypertension; Z86.19 Personal history of other infectious and parasitic diseases; Z87.11 Personal history of peptic ulcer disease; Z71.6 Tobacco abuse counseling; Z82.49 Family history of ischemic heart disease and other diseases of the circulatory system
CPT/HCPCS: 36415; 80048; 80053; 80061; 80202; 82565; 83605; 84550; 85025; 85027; 85652; 86140; 87070; 87075; 87205; 96365; 96367; 96375; 99284